=== PATIENT | male | born 1990 | race Caucasian/White ===

== ENCOUNTER → 2016-08-16 | Outpatient (CLI) | payer OTHER ==
--- NOTE | 2016-08-16 17:58 | XR ---
EXAMINATION TYPE: XR orbit detect foreign body DATE OF EXAM: 08/16/2016 5:50 PM COMPARISON: NONE HISTORY: Possible foreign body TECHNIQUE: 3 views FINDINGS: Orbital margins are intact. There is no sign of radiopaque foreign body. Paranasal sinuses appear normal. IMPRESSION: Normal exam
--- NOTE | 2016-08-16 23:44 | MR ---
History epilepsy and weakness and numbness. Comparison none. TECHNIQUE: Multiplanar multi echo imaging of the brain was performed without and subsequently with intravenous c ontrast. The IV contrast was MultiHance 20 mL. FINDINGS: The ventricles and sulci appear normal. There is no mass effect nor midline shift. There is no sign o f intracranial hemorrhage. Singh and white matter structures have normal signal pattern. There is no e vidence of cerebral edema. Brainstem is intact. Sella turcica appears normal. Corpus callosum appears normal. There is no evidence of a posterior fossa mass. There is no pathologic enhancement. CONCLUSION: Normal MRI scan of the brain.
== END | disposition home or self-care (01) ==
LOC: RADMRIMAIN 17:31
PROVIDERS: ATTEND Psychiatry & Neurology Neurology
DX: G40.209 Localization-related (focal) (partial) symptomatic epilepsy and epileptic syndromes with complex partial seizures, not intractable, without status epilepticus (principal)
CPT/HCPCS: 70030; 70553; A9577

== ENCOUNTER → 2018-03-31 | Outpatient (CLI) | payer OTHER ==
--- NOTE | 2018-03-31 12:15 | US ---
EXAMINATION TYPE: US venous doppler duplex LE DATE OF EXAM: 03/31/2018 11:48 AM COMPARISON: NONE CLINICAL HISTORY: I82.812 EMBOLISM AND THROMBOSIS OF LOWER EXT. Pt states hx of superficial blood mitesh ts in legs SIDE PERFORMED: Bilateral TECHNIQUE: The lower extremity deep venous system is examined utilizing real time linear array sonog yohana with graded compression, doppler sonography and color-flow sonography. VESSELS IMAGED: External Iliac Vein (EIV) Common Femoral Vein Deep Femoral Vein Greater Saphenous Vein * Femoral Vein Popliteal Vein Small Saphenous Vein * Proximal Calf Veins (* superficial vessels) Right Leg: Negative for DVT Left Leg: Negative for DVT IMPRESSION: 1. No diagnostic evidence of DVT as visualized
== END | disposition home or self-care (01) ==
LOC: RADUSWWP 11:15
PROVIDERS: ATTEND Internal Medicine Hematology & Oncology
DX: I82.812 Embolism and thrombosis of superficial veins of left lower extremity (principal); Z88.0 Allergy status to penicillin
CPT/HCPCS: 93970